=== PATIENT | female | born 1940 ===

== ENCOUNTER → 2023-05-24 | Outpatient (CLI) | payer MEDICARE ==
[~2023-05-24] MED LIST: GABA100 PO; IBU800 M1 PO; LIDO700A20 TOP; Voltaren100 GM TOP
[2023-05-24 12:29] LABS: BASOPHILS ABSOLUTE AUTO 0.07 K/mm3 (0.00-0.23); BASOPHILS PERCENT AUTO 1 % (0-2); EOSINOPHILS ABSOLUTE AUTO 0.14 K/mm3 (0.00-0.68); EOSINOPHILS PERCENT AUTO 2 % (0-6); Hematocrit 42.9 % (33.0-51.0); IMMATURE GRAN ABSOLUTE AUTO 0.02 K/mm3 (0.00-0.10); IMMATURE GRAN PERCENT AUTO 0 % (0-1); LYMPHOCYTES ABSOLUTE AUTO 1.06 K/mm3 (0.84-5.20); LYMPHOCYTES PERCENT AUTO 14 % (21-46); MONOCYTES ABSOLUTE AUTO 0.65 K/mm3 (0.16-1.47); MONOCYTES PERCENT AUTO 9 % (4-13); Mean Corpuscular HGB 29.9 pg (26.0-34.0); Mean Corpuscular HGB Conc 32.6 g/dL (31.5-36.5); Mean Corpuscular Volume 92 fL (80-100); Mean Platelet Volume 9.7 fL (9.1-12.4); NEUTROPHILS ABSOLUTE AUTO 5.57 K/mm3 (1.96-9.15); NEUTROPHILS PERCENT AUTO 74 % (41-73); Platelet Count 369 K/mm3 (150-400); RDW Coefficient Variation 13.4 % (11.7-14.2); RDW Standard Deviation 45.1 fL (35.1-46.3); Red Blood Cell Count 4.69 M/mm3 (3.80-5.20); White Blood Cell Count 7.51 K/mm3 (4.00-11.30)
[2023-05-24 12:33] LABS: Bun/Creatinine Ratio 14.3 (12.0-20.0); Calcium, Blood 9.6 mg/dL (8.5-10.1); Creatinine, Blood 0.7 mg/dL (0.40-1.00); Potassium, Blood 4.1 mmol/L (3.5-5.5)
[2023-05-26 15:18] LABS: RHEUMATOID FACTOR <10 IU/mL (0-14)
[2023-05-26 21:39] LABS: CYCLIC CITRULLINATED PEP,IGG/A 4 Units (0-19)
[2023-05-26 21:47] LABS: ANTI-NUCLEAR AB ANA,IGG ELISA None Detected (None Detected)
== END ==
LOC: LAB 12:21 → LAB SHORT 12:21
PROVIDERS: Physician Assistant
DX: M62.81 Muscle weakness (generalized) (principal)
CPT/HCPCS: 80048; 85025; 85651; 86038; 86140; 86200; 86431

== ENCOUNTER 2023-05-26 12:21 | Emergency (ER) | payer MEDICARE ==
[~2023-05-26] VITALS: Ht 157.5 cm; Wt 61.2 kg
[2023-05-26 12:30] VITALS: BP 171/88
[2023-05-26] MEDS ORDERED: Acetaminophen 500 MG Tab PO ONE (13:10)
[2023-05-26] MEDS ORDERED: Ketorolac Tromethamine 10 MG Tab PO ONE (13:15)
[2023-05-26] MEDS ORDERED: Lidocaine 4% 1 Patch TOP ONE (13:15)
[2023-05-26] MEDS ORDERED: LIDO700A20 TOP (15:34)
== END 2023-05-26 15:46 | disposition home or self-care (01) ==
LOC: ER 12:21
DX: S70.01XA Contusion of right hip, initial encounter (principal); S29.012A Strain of muscle and tendon of back wall of thorax, initial encounter; G89.29 Other chronic pain; W18.30XA Fall on same level, unspecified, initial encounter; X50.0XXA Overexertion from strenuous movement or load, initial encounter; Y92.009 Unspecified place in unspecified non-institutional (private) residence as the place of occurrence of the external cause; Y93.89 Activity, other specified
CPT/HCPCS: 72192; 73502; 99284-25; A9270

== ENCOUNTER 2023-05-29 17:17 | Emergency (ER) | payer MEDICARE ==
[~2023-05-29] VITALS: Ht 157.5 cm; Wt 61.2 kg
[~2023-05-29 17:17] MED LIST changes: -GABA100 PO; -IBU800 M1 PO; -Voltaren100 GM TOP
[2023-05-29 17:28] VITALS: BP 196/83
[2023-05-29] MEDS ORDERED: GABA100 PO (18:26)
[2023-05-29] MEDS ORDERED: IBU800 M1 PO (18:26)
== END 2023-05-29 18:45 | disposition home or self-care (01) ==
LOC: ER 17:17
DX: M54.9 Dorsalgia, unspecified (principal); M25.559 Pain in unspecified hip; G89.29 Other chronic pain; Z91.199 Patient's noncompliance with other medical treatment and regimen due to unspecified reason
CPT/HCPCS: 99284

== ENCOUNTER 2023-06-05 20:48 | Emergency (ER) | payer MEDICARE ==
[~2023-06-05] VITALS: Ht 157.5 cm; Wt 59.0 kg
[~2023-06-05 20:48] MED LIST changes: +GABA100 PO; +IBU800 M1 PO
[2023-06-05 22:45] LABS: BASOPHILS ABSOLUTE AUTO 0.06 K/mm3 (0.00-0.23); BASOPHILS PERCENT AUTO 1 % (0-2); EOSINOPHILS ABSOLUTE AUTO 0.15 K/mm3 (0.00-0.68); EOSINOPHILS PERCENT AUTO 2 % (0-6); Hematocrit 40.1 % (33.0-51.0); IMMATURE GRAN ABSOLUTE AUTO 0.01 K/mm3 (0.00-0.10); IMMATURE GRAN PERCENT AUTO 0 % (0-1); LYMPHOCYTES PERCENT AUTO 11 % (21-46); MONOCYTES ABSOLUTE AUTO 0.54 K/mm3 (0.16-1.47); MONOCYTES PERCENT AUTO 7 % (4-13); Mean Corpuscular HGB 29.6 pg (26.0-34.0); Mean Corpuscular HGB Conc 32.4 g/dL (31.5-36.5); Mean Corpuscular Volume 91 fL (80-100); Mean Platelet Volume 9.6 fL (9.1-12.4); NEUTROPHILS PERCENT AUTO 80 % (41-73); Platelet Count 353 K/mm3 (150-400); RDW Coefficient Variation 13.2 % (11.7-14.2); RDW Standard Deviation 44.1 fL (35.1-46.3); Red Blood Cell Count 4.39 M/mm3 (3.80-5.20); White Blood Cell Count 8.26 K/mm3 (4.00-11.30)
[2023-06-05 23:14] LABS: Albumin, Blood 3.8 g/dL (3.4-5.0); Albumin/Globulin Ratio 1.2 (0.8-1.8); Bilirubin, Total 0.2 mg/dL (0.1-1.0); Creatinine, Blood 0.57 mg/dL (0.40-1.00); Globulin, Blood 3.3 g/dL (2.2-4.0); Magnesium, Blood 2.4 mg/dL (1.6-2.4); Phosphorus, Blood 3.7 mg/dL (2.5-4.9); Potassium, Blood 4.3 mmol/L (3.5-5.5); Thyroid Stimulating Hormone 1.46 uIU/mL (0.360-4.800); Total Protein, Blood 7.1 g/dL (6.4-8.2)
[2023-06-05] MEDS ORDERED: Voltaren100 GM TOP (23:16)
[2023-06-05 23:25] LABS: Source, Urine Clean Catch
[2023-06-05 23:32] LABS: Bilirubin, Urine Neg (Neg); Blood, Urine Neg (Neg); Glucose Qualitative, Urine Neg (Neg); Ketones, Urine Neg (Neg); Leukocyte Esterase, Urine Neg (Neg); Nitrite, Urine Neg (Neg); Protein, Urine Neg (Neg); Urobilinogen, Urine NORM (Normal)
[2023-06-05 23:37] VITALS: BP 185/80
[2023-06-05 23:50] LABS: Appearance, Urine Clear (Clear); Color, Urine Pale Yellow (P-Yellow)
== END 2023-06-05 23:38 | disposition home or self-care (01) ==
LOC: ER 20:48
PROVIDERS: Emergency Medicine
DX: T40.711A Poisoning by cannabis, accidental (unintentional), initial encounter (principal); R42 Dizziness and giddiness; H53.15 Visual distortions of shape and size; R00.0 Tachycardia, unspecified; Z79.899 Other long term (current) drug therapy
CPT/HCPCS: 80053; 81003; 83735; 84100; 84443; 85025; 93005; 93010; 99284-25

== ENCOUNTER → 2023-12-01 | Outpatient (CLI) | payer MEDICARE ==
[~2023-12-01] MED LIST changes: +Voltaren100 GM TOP
== END ==
LOC: LAB 12:51 → LAB SHORT 12:51
DX: R82.81 Pyuria (principal)
CPT/HCPCS: 87086

== ENCOUNTER 2024-06-18 11:37 | Emergency (ER) | payer OTHER ==
[~2024-06-18] VITALS: Ht 157.5 cm; Wt 59.0 kg
[2024-06-18] MEDS ORDERED: HYDROCODONE-AC1 EA19 PO (13:31)
[2024-06-18] MEDS ORDERED: TIZANIDINE HCL213 PO (13:31)
[2024-06-18 15:00] VITALS: BP 157/80
== END 2024-06-18 15:00 | disposition home or self-care (01) ==
LOC: ER 11:37
DX: S09.90XA Unspecified injury of head, initial encounter (principal); W18.30XA Fall on same level, unspecified, initial encounter; Z79.899 Other long term (current) drug therapy
CPT/HCPCS: 70450; 99283-25

== ENCOUNTER 2024-06-28 09:10 | Emergency (ER) | payer OTHER ==
[~2024-06-28] VITALS: Ht 160 cm; Wt 61.2 kg
[~2024-06-28 09:10] MED LIST changes: +HYDROCODONE-AC1 EA19 PO; +LACT10SY PO; +MINERAL OIL133 M1 PR; +TIZANIDINE HCL213 PO
[2024-06-28 10:02] LABS: BASOPHILS ABSOLUTE AUTO 0.05 K/mm3 (0.00-0.23); BASOPHILS PERCENT AUTO 1 % (0-2); EOSINOPHILS ABSOLUTE AUTO 0.21 K/mm3 (0.00-0.68); EOSINOPHILS PERCENT AUTO 4 % (0-6); Hematocrit 33.6 % (33.0-51.0); Hemoglobin 10.9 g/dL (11.5-16.0); IMMATURE GRAN ABSOLUTE AUTO 0.02 K/mm3 (0.00-0.10); IMMATURE GRAN PERCENT AUTO 0 % (0-1); LYMPHOCYTES ABSOLUTE AUTO 0.96 K/mm3 (0.84-5.20); LYMPHOCYTES PERCENT AUTO 17 % (21-46); MONOCYTES ABSOLUTE AUTO 0.61 K/mm3 (0.16-1.47); MONOCYTES PERCENT AUTO 11 % (4-13); Mean Corpuscular HGB 29.6 pg (26.0-34.0); Mean Corpuscular HGB Conc 32.4 g/dL (31.5-36.5); Mean Corpuscular Volume 91 fL (80-100); Mean Platelet Volume 9.6 fL (9.1-12.4); NEUTROPHILS PERCENT AUTO 68 % (41-73); Platelet Count 410 K/mm3 (150-400); RDW Coefficient Variation 13.1 % (11.7-14.2); RDW Standard Deviation 44.1 fL (35.1-46.3); Red Blood Cell Count 3.68 M/mm3 (3.80-5.20); White Blood Cell Count 5.75 K/mm3 (4.00-11.30)
[2024-06-28 10:10] LABS: Alanine Aminotransfer (ALT/SGP 25 U/L (12-78); Albumin, Blood 3.4 g/dL (3.4-5.0); Alk Phos 91 U/L (50-136); Anion Gap 9 mmol/L (3-11); Aspartate Aminotrans (AST/SGOT 23 U/L (12-37); Bilirubin, Total 0.3 mg/dL (0.1-1.0); Blood Urea Nitrogen 12 mg/dL (8-24); Bun/Creatinine Ratio 24.9 (12.0-20.0); CO2, Blood 29 mmol/L (21-32); Calcium, Blood 8.9 mg/dL (8.5-10.1); Chloride, Blood 103 mmol/L (98-108); Creatinine, Blood 0.48 mg/dL (0.40-1.00); Ethanol (Alcohol), Blood, Med <3 mg/dL; Globulin, Blood 3.3 g/dL (2.2-4.0); Glomerular Filtration Rate 95 (60-); Glucose, Blood 122 mg/dL (70-99); Potassium, Blood 3.5 mmol/L (3.5-5.5); Sodium, Blood 137 mmol/L (136-145); Total Protein, Blood 6.7 g/dL (6.4-8.2)
[2024-06-28 10:33] LABS: Source, Urine Clean Catch
[2024-06-28 11:23] LABS: Appearance, Urine Clear (Clear); Bilirubin, Urine Neg (Neg); Blood, Urine Neg (Neg); Glucose Qualitative, Urine Neg (Neg); Ketones, Urine Neg (Neg); Leukocyte Esterase, Urine Neg (Neg); Nitrite, Urine Neg (Neg); Protein, Urine Neg (Neg); Urobilinogen, Urine NORM (Normal)
[2024-06-28] MEDS ORDERED: Lactated Ringer's 1,000 ML IV ONE (11:25)
[2024-06-28] MEDS ORDERED: OxyCODONE HCL 5 MG TAB PO ONE (11:25)
[2024-06-28 11:39] LABS: Color, Urine Pale Yellow (P-Yellow)
[2024-06-28 12:19] LABS: U Amphetamine Screen Not Detected; U Barbituate Screen Not Detected; U Benzodiazapine Screen Not Detected; U Buprenorphine Screen Not Detected; U Cannabinoids Screen Not Detected; U Cocaine Screen Not Detected; U Methadone Screen Not Detected; U Methamphetamine Screen Not Detected; U Opiates Screen DETECTED; U Oxycodone Screen Not Detected; U Phencyclidine Screen Not Detected
[2024-06-28] MEDS ORDERED: Morphine Sulfate 4 MG/1 ML Injection IV ONE (14:15)
[2024-06-29 21:30] VITALS: BP 162/76
== END 2024-06-30 10:28 ==
LOC: ER 09:10
PROVIDERS: Student in an Organized Health Care Education/Training Program
DX: R53.1 Weakness (principal); R10.32 Left lower quadrant pain; Z91.81 History of falling; Z79.899 Other long term (current) drug therapy
CPT/HCPCS: 80053; 80320; 81003; 85025; 93005; 93010; 96361; 96374; 97116; 97161; 99285-25; A9270; J2270; J7120

== ENCOUNTER → 2024-07-08 | Outpatient (CLI) | payer OTHER ==
[2024-07-08 19:23] LABS: BASOPHILS ABSOLUTE AUTO 0.06 K/mm3 (0.00-0.23); BASOPHILS PERCENT AUTO 1 % (0-2); EOSINOPHILS ABSOLUTE AUTO 0.26 K/mm3 (0.00-0.68); EOSINOPHILS PERCENT AUTO 4 % (0-6); Hematocrit 35.9 % (33.0-51.0); Hemoglobin 11.8 g/dL (11.5-16.0); IMMATURE GRAN ABSOLUTE AUTO 0.01 K/mm3 (0.00-0.10); IMMATURE GRAN PERCENT AUTO 0 % (0-1); LYMPHOCYTES ABSOLUTE AUTO 1.04 K/mm3 (0.84-5.20); LYMPHOCYTES PERCENT AUTO 16 % (21-46); MONOCYTES ABSOLUTE AUTO 0.88 K/mm3 (0.16-1.47); MONOCYTES PERCENT AUTO 13 % (4-13); Mean Corpuscular HGB 29.9 pg (26.0-34.0); Mean Corpuscular HGB Conc 32.9 g/dL (31.5-36.5); Mean Corpuscular Volume 91 fL (80-100); NEUTROPHILS ABSOLUTE AUTO 4.44 K/mm3 (1.96-9.15); NEUTROPHILS PERCENT AUTO 66 % (41-73); Platelet Count 521 K/mm3 (150-400); RDW Coefficient Variation 13.2 % (11.7-14.2); RDW Standard Deviation 44.1 fL (35.1-46.3); Red Blood Cell Count 3.95 M/mm3 (3.80-5.20); White Blood Cell Count 6.69 K/mm3 (4.00-11.30)
[2024-07-08 19:38] LABS: Percent Saturation 19.1 % (15.0-50.0)
[2024-07-08 19:39] LABS: Albumin, Blood 3.8 g/dL (3.4-5.0); Albumin/Globulin Ratio 1.1 (0.8-1.8); Bilirubin, Total 0.3 mg/dL (0.1-1.0); Bun/Creatinine Ratio 25.6 (12.0-20.0); Calcium, Blood 9.6 mg/dL (8.5-10.1); Creatinine, Blood 0.55 mg/dL (0.40-1.00); Globulin, Blood 3.5 g/dL (2.2-4.0); Potassium, Blood 3.8 mmol/L (3.5-5.5); Total Protein, Blood 7.3 g/dL (6.4-8.2)
== END | disposition home or self-care (01) ==
LOC: LAB SHORT 18:12 → LAB 18:12
PROVIDERS: Family Medicine
DX: D50.9 Iron deficiency anemia, unspecified (principal); Z98.1 Arthrodesis status; Z98.890 Other specified postprocedural states
CPT/HCPCS: 80053; 82728; 83540; 83550; 85025